=== PATIENT | female | born 1970 | race Caucasian/White ===

== ENCOUNTER → 2016-10-07 | Outpatient (CLI) | payer MEDICARE, OTHER ==
[2016-10-07 09:57] VITALS: BP 95/69; PULSE 95; RESP 20; TEMP 97.8; BMI 25.0
--- NOTE | 2016-10-09 18:00 | CONS ---
DATE OF CONSULTATION: 10/07/2016. CHIEF COMPLAINT: Panniculitis. HISTORY OF PRESENT ILLNESS: Shaye Alas is a 45-year-old female with a previous history of a sleeve gastrectomy performed in over 2, almost 3 years ago. For her height of 5 feet 9 inches, her ideal body weight is 168 pounds. Original weight was 313 pounds. Today she comes in weighing 169 pounds. She has lost 144 pounds. She has achieved 99% excess weight loss. Body mass index is reduced from 46.3 down to 25. Total BMI point reduction is 21.3. She reports chronic infections of the pannus. Over the past 6+ months she has been treated with nystatin powders. She has severe erythema and redness along the pannus, which is only minimally improved despite treatment. She reports chronic severe lower back pain from her pannus. Now she presents for further evaluation and management. PAST MEDICAL HISTORY: 1. History of bipolar disorder. 2. Depression. 3. Panniculitis. 4. History of bronchitis. 5. Chronic constipation. 6. Panic disorder. PAST SURGICAL HISTORY: 1. Sleeve gastrectomy. 2. Cholecystectomy. 3. Colonoscopy. MEDICATIONS: 1. Lamictal. 2. Seroquel. 3. Diclofenac. 4. Vitamin B12. 5. Vitamin D. 6. Nystatin powder. ALLERGIES: ASPIRIN. SOCIAL HISTORY: No recent active tobacco use. No illicit drug use. FAMILY HISTORY: She is adopted. REVIEW OF SYSTEMS: CONSTITUTIONAL: [place] body weight of 168 pounds. Highest weight of 313 pounds. Present weight of 169 pounds. Total weight loss of 144 pounds. Percent excess weight loss of 99%. Body mass index reduced from 46.3 down to 25. Total BMI point reduction of 21.3. HEENT: No reports of problems with vision, hearing. No reports of dysphagia. ENDOCRINE: No reports of diabetes or thyroid disorder. RESPIRATORY: No reports of obstructive sleep apnea recent pneumonia. GASTROINTESTINAL: No reports of nausea, vomiting, or gastrointestinal disease. MUSCULOSKELETAL: Has lower back pain. He has resolved osteoarthritis of the bilateral knees. NEURO: No reports of stroke or seizure disorder. PSYCH: History of depression including bipolar disorder. HEMATOLOGIC: No reports of easy bruising or bleeding. PHYSICAL EXAM: VITAL SIGNS: 97.8, 95, 20, 95/69; 5 feet 9 inches, 169 pounds. Body mass 25. GENERAL: Well-developed, pleasant female in no acute distress. HEENT: No scleral icterus. Extraocular movements grossly intact. Moist buccal mucosa. NECK: Supple without lymphadenopathy. CHEST: Nonlabored respirations equal bilateral excursions. CARDIOVASCULAR: Regular rate and rhythm. Palpable 2+ pulses. MUSCULOSKELETAL: No clubbing, cyanosis, or edema. NEURO: No focal or lateralizing signs. Cranial nerves II through XII grossly within normal limits. PSYCH: Appropriate affect. Alert and person, place, and time. SKIN: Erythema noticed along the pannus consistent with panniculitis. Pannus extends over pubis by over 8 cm. Weight of pannus between 8 to 10 pounds. Moderate skin elastosis of the bilateral thighs including upper arms. LABS: Previous hemoglobin was 13.1. ASSESSMENT: 1. Morbid obesity due to excess calories, now resolved. 2. Body mass index reduced from 46.3 down to 25. 3. Status post massive weight loss, 144 pounds. 4. Status post sleeve gastrectomy. 5. Recurrent severe panniculitis despite medical treatment. 6. Personal history of depression. 7. Osteoarthritis of the lower back. PLAN: 1. Recommend panniculectomy. Benefits and risks of excision of her skin was described. 2. Risk of flap failure, infection and recurrent including cosmetic deformity were described at length. 3. Inpatient hospitalization greater than 2 nights described. 4. Deep venous thrombosis prophylaxis. 5. Antibiotic prophylaxis. 6. Recommend goal protein intake of over 65 grams daily for optimal wound healing. 7. In the interim, nystatin powder to be continued. 8. Additional imaging pictures were obtained given her panniculitis. [facility]
== END | disposition home or self-care (01) ==
LOC: BARWHC3 09:08
PROVIDERS: ATTEND Surgery Plastic and Reconstructive Surgery
DX: Z48.815 Encounter for surgical aftercare following surgery on the digestive system (principal); Z98.84 Bariatric surgery status; M79.3 Panniculitis, unspecified; Z68.25 Body mass index [BMI] 25.0-25.9, adult; M47.896 Other spondylosis, lumbar region; Z88.8 Allergy status to other drugs, medicaments and biological substances; Z79.899 Other long term (current) drug therapy
CPT/HCPCS: 99211

== ENCOUNTER → 2016-11-02 | Outpatient (CLI) | payer MEDICARE, OTHER ==
[2016-11-02 10:32] LABS: Basophils % (A) 1 %; CH 27.8; CHCM 31.3; Eosinophils # (A) 0.1 k/uL (0-0.7); Eosinophils % (A) 1 %; HCT 39.2 % (34.0-46.0); HDW 2.85; HGB 12.3 gm/dL (11.4-16.0); Hypochromasia Slight; Luc # (Auto) 0.11; Luc % (Auto) 2; Lymphocytes # (A) 1.7 k/uL (1.0-4.8); Lymphocytes % (A) 34 %; MCHC 31.3 g/dL (31.0-37.0); MCV 89.2 fL (80.0-100.0); Mean Platelet Volume 8.8; Monocytes # (A) 0.3 k/uL (0-1.0); Monocytes % (A) 5 %; Neutrophils # (A) 2.9 k/uL (1.3-7.7); Neutrophils % (A) 57 %; RBC 4.39 m/uL (3.80-5.40); RDW 13.9 % (11.5-15.5); WBC (Perox) 5.36
[2016-11-02 10:54] LABS: ALT 20 U/L (9-52); AST 22 U/L (14-36); Alkaline Phosphatase 59 U/L (38-126); Anion Gap 11 mmol/L; Blood Urea Nitrogen 8 mg/dL (7-17); Calcium 9.4 mg/dL (8.4-10.2); Carbon Dioxide 26 mmol/L (22-30); Chloride 105 mmol/L (98-107); Glucose 87 mg/dL (74-99); Non-African American GFR(MDRD) >60 (>60 ml/min/1.73 sqM); Potassium 4.3 mmol/L (3.5-5.1); Sodium 142 mmol/L (137-145); Total Bilirubin 0.8 mg/dL (0.2-1.3); Total Protein 7.3 g/dL (6.3-8.2)
== END ==
LOC: LABPAT 09:39
PROVIDERS: ATTEND Surgery Plastic and Reconstructive Surgery
DX: Z01.812 Encounter for preprocedural laboratory examination (principal)
CPT/HCPCS: 80053; 85025

== ENCOUNTER 2016-11-08 10:16 | Day surgery (SDC) | payer MEDICARE, OTHER ==
[2016-11-03 15:13] VITALS: BMI 24.2
[~2016-11-08 10:16] MED LIST: DEXAMETHASONE SOD PHOSPHATE 10 MG/ML 1 ML VIAL IV ONE; HYDROmorphone 1 MG/ML 1 ML SYRINGE IVP PRN; MIDAZOLAM 2 MG/2 ML VIAL IV PRN; ONDANSETRON 4 MG/2 ML VIAL IVP ONE; Pre Op ABX Message 1 EACH MISC MISCELLANE ONE
[2016-11-08] MEDS ORDERED: BUPIVACAINE LIPOSOME/PF 1.3% 20 ML, BUPIVACAIN-EPI 0.5%-1:200,000 25 ML, SODIUM CHLORID... MISCELLANE ONE ×3 (10:21)
[2016-11-08] MEDS ORDERED: ceFAZolin 2 GM in SODIUM CHLORIDE 0.9% 100 ML IVPB ONE (10:21)
--- NOTE | 2016-11-08 10:21 | P.GSHP ---
History of Present Illness H&P Date: 11/08/16 CHIEF COMPLAINT: Panniculitis. HISTORY OF PRESENT ILLNESS: Shaye Alas is a 45-year-old female with a previous history of a sleeve gastrectomy performed in over 2, almost 3 years ago. For her height of 5 feet 9 inches, her ideal body weight is 168 pounds. Original weight was 313 pounds. Today she comes in weighing 164 pounds. She has lost 149 pounds. She has achieved 101% excess weight loss. Body mass index is reduced from 46.3 down to 24.2. Total BMI point reduction is 21.3. She reports chronic infections of the pannus. Over the past 6+ months she has been treated with nystatin powders. She has severe erythema and redness along the pannus, which is only minimally improved despite treatment. She reports chronic severe lower back pain from her pannus. Now she presents for further evaluation and management. PAST MEDICAL HISTORY: 1. History of bipolar disorder. 2. Depression. 3. Panniculitis. 4. History of bronchitis. 5. Chronic constipation. 6. Panic disorder. PAST SURGICAL HISTORY: 1. Sleeve gastrectomy. 2. Cholecystectomy. 3. Colonoscopy. MEDICATIONS: 1. Lamictal. 2. Seroquel. 3. Diclofenac. 4. Vitamin B12. 5. Vitamin D. 6. Nystatin powder. ALLERGIES: ASPIRIN. SOCIAL HISTORY: No recent active tobacco use. No illicit drug use. FAMILY HISTORY: She is adopted. REVIEW OF SYSTEMS: CONSTITUTIONAL: [place] body weight of 168 pounds. Highest weight of 313 pounds. Present weight of 164 pounds. Total weight loss of 144 pounds. Percent excess weight loss of 101%. Body mass index reduced from 46.3 down to 24.2. Total BMI point reduction of 21.3. HEENT: No reports of problems with vision, hearing. No reports of dysphagia. ENDOCRINE: No reports of diabetes or thyroid disorder. RESPIRATORY: No reports of obstructive sleep apnea recent pneumonia. GASTROINTESTINAL: No reports of nausea, vomiting, or gastrointestinal disease. MUSCULOSKELETAL: Has lower back pain. He has resolved osteoarthritis of the bilateral knees. NEURO: No reports of stroke or seizure disorder. PSYCH: History of depression including bipolar disorder. HEMATOLOGIC: No reports of easy bruising or bleeding. PHYSICAL EXAM: VITAL SIGNS: 97.8, 95, 20, 95/69; 5 feet 9 inches, 164 pounds. Body mass 24.2. GENERAL: Well-developed, pleasant female in no acute distress. HEENT: No scleral icterus. Extraocular movements grossly intact. Moist buccal mucosa. NECK: Supple without lymphadenopathy. CHEST: Nonlabored respirations equal bilateral excursions. CARDIOVASCULAR: Regular rate and rhythm. Palpable 2+ pulses. MUSCULOSKELETAL: No clubbing, cyanosis, or edema. NEURO: No focal or lateralizing signs. Cranial nerves II through XII grossly within normal limits. PSYCH: Appropriate affect. Alert and person, place, and time. SKIN: Erythema noticed along the pannus consistent with panniculitis. Pannus extends over pubis by over 8 cm. Weight of pannus between 8 to 10 pounds. Moderate skin elastosis of the bilateral thighs including upper arms. LABS: Previous hemoglobin was 13.1. ASSESSMENT: 1. Morbid obesity due to excess calories, now resolved. 2. Body mass index reduced from 46.3 down to 24.2. 3. Status post massive weight loss, 149 pounds. 4. Status post sleeve gastrectomy. 5. Recurrent severe panniculitis despite medical treatment. 6. Personal history of depression. 7. Osteoarthritis of the lower back. PLAN: 1. Recommend panniculectomy. Benefits and risks of excision of her skin was described. 2. Risk of flap failure, infection and recurrence including cosmetic deformity were described at length. 3. Inpatient hospitalization greater than 2 nights described. 4. Deep venous thrombosis prophylaxis. 5. Antibiotic prophylaxis. Past Medical History Past Medical History: Cancer, Osteoarthritis (OA), Pneumonia Additional Past Medical History / Comment(s): low blood pressure, bradycardia, bronchitis, childhood seizures none in last 20 yrs. 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 Smoking Status: Never smoker Past Alcohol Use History: None Reported Additional Past Alcohol Use History / Comment(s): She is a lifelong nonsmoker. She denies any medical marijuana, marijuana, street drug or alcohol use. She does not have a nebulizer or CPAP at home. Past Drug Use History: None Reported - Past Family History Father Additional Family Medical History / Comment(s): pt adopted but states her father is 65 years of age and she does not know any of his medical history. Mother Family Medical History: No Reported History Additional Family Medical History / Comment(s): pt adoptedher mother is 65 years of age. She does not know any medical history. Sister(s) Additional Family Medical History / Comment(s): She has 3 sisters that she has never met. Son(s) Additional Family Medical History / Comment(s): Patient is a total of 7 children , 4 boys and 3 girls with no major medical problems. Medications and Allergies Home Medications Medication Instructions Recorded Confirmed Type lamoTRIgine [LaMICtal] 150 mg PO HS 03/09/16 11/03/16 History Cholecalciferol [Vitamin D3] 1,000 unit PO DAILY 11/03/16 11/03/16 History Ferrous Sulfate [Feosol] 325 mg PO DAILY 11/03/16 11/03/16 History Lurasidone HCl [Latuda] 20 mg PO HS 11/03/16 11/03/16 History QUEtiapine [SEROquel] 200 mg PO HS 11/03/16 11/03/16 History Allergies Allergy/AdvReac Type Severity Reaction Status Date / Time sodium Allergy Anaphylaxis Verified 11/03/16 14:15 aspirin AdvReac pt states Verified 11/03/16 14:15 she after taking
[2016-11-08] MEDS: LACTATED RINGERS 1,000 ML IV SCH ×2 (11:44→17:18)
[2016-11-08] MEDS ORDERED: LIDOCAINE 1% 20 ML VIAL (10MG/ML) FOR IV START INTRADERMA ONE (11:45)
[2016-11-08] MEDS: ACETAMINOPHEN IV (For NPO) 1,000 MG in EMPTY BAG 1 BAG IVPB ONE ×2 (12:13→17:18)
[2016-11-08] MEDS ORDERED: HEPARIN SODIUM,PORCINE 5,000 UNIT/ML 1 ML VIAL SQ STA (15:06)
[2016-11-08] MEDS ORDERED: MIDAZOLAM 2 MG/2 ML VIAL ONE (17:20)
[2016-11-08] MEDS ORDERED: PHENYLEPHRINE-0.9% NACL SYG 1 MG/10 ML SYRINGE ONE (17:20)
[2016-11-08] MEDS ORDERED: PROPOFOL 10 MG/ML 20 ML VIAL IV ONE (17:20)
[2016-11-08] MEDS ORDERED: NEOSTIGMINE 1 MG/ML 10 ML VIAL ONE (17:20)
[2016-11-08] MEDS ORDERED: SUCCINYLCHOLINE CHLORIDE 100 MG/5 ML SYR IV ONE (17:20)
[2016-11-08] MEDS ORDERED: LIDOCAINE 1% INJ 10MG/ML (20 ML MDV) ONE (17:20)
[2016-11-08] MEDS ORDERED: HYDROmorphone (PF) 1 MG/ML ONE (17:20)
[2016-11-08] MEDS ORDERED: fentaNYL (PF) 50 MCG/ML 2 ML AMP ONE (17:20)
[2016-11-08] MEDS ORDERED: ROCURONIUM BROMIDE 10 MG/ML 10 ML VIAL IV ONE (17:20)
[2016-11-08] MEDS ORDERED: GLYCOPYRROLATE 0.2 MG/ML 2 ML VIAL ONE (17:20)
[2016-11-08] MEDS ORDERED: LACTATED RINGERS 1,000 ML IV ONE ×2 (17:57→19:41)
[2016-11-08] MEDS ORDERED: ONDANSETRON 4 MG/2 ML VIAL IVP PRN (20:01)
[2016-11-08] MEDS ORDERED: HYDROmorphone 1 MG/ML 1 ML SYRINGE IVP PRN (20:01)
[2016-11-08] MEDS ORDERED: NALOXONE 0.4 MG/ML 1 ML VIAL IV PRN (20:01)
[2016-11-08] MEDS ORDERED: lamoTRIgine 100 MG TAB PO SCH (21:00)
[2016-11-08] MEDS ORDERED: LURASIDONE 40 MG TAB PO SCH (21:00)
[2016-11-08 21:05] VITALS: RESP 19
[2016-11-08] MEDS: D5-0.45% NACL WITH KCL 20MEQ/L 1,000 ML IV SCH (22:02)
[2016-11-08] MEDS ORDERED: ACETAMINOPHEN IV (For NPO) 1,000 MG in EMPTY BAG 1 BAG IVPB ONE (23:00)
[2016-11-08] MEDS: ceFAZolin 2 GM in SODIUM CHLORIDE 0.9% 100 ML IVPB SCH (23:59)
[2016-11-09 02:07] VITALS: PULSE 77
[2016-11-09] MEDS: D5-0.45% NACL WITH KCL 20MEQ/L 1,000 ML IV SCH ×2 (04:59→15:05)
[2016-11-09] MEDS: LACTATED RINGERS 1,000 ML IV SCH (05:48)
[2016-11-09 07:39] LABS: Basophils % (A) 0 %; CH 27.8; CHCM 31.7; Eosinophils % (A) 1 %; HCT 29.2 % (34.0-46.0); HDW 2.87; Hypochromasia Slight; Luc # (Auto) 0.14; Luc % (Auto) 2; Lymphocytes % (A) 24 %; MCH 28.4 pg (25.0-35.0); MCHC 32.3 g/dL (31.0-37.0); Monocytes # (A) 0.5 k/uL (0-1.0); Monocytes % (A) 7 %; Neutrophils # (A) 5.4 k/uL (1.3-7.7); Neutrophils % (A) 67 %; RBC 3.32 m/uL (3.80-5.40); RDW 13.9 % (11.5-15.5); WBC (Perox) 8.27
[2016-11-09 08:01] LABS: HGB 9.4 gm/dL (11.4-16.0)
[2016-11-09] MEDS ORDERED: ENOXAPARIN 40 MG/0.4 ML SYRINGE SQ SCH (09:00)
--- NOTE | 2016-11-09 09:56 | P.PN ---
Subjective 46-year-old female being seen this morning on rounds is currently resting in bed. Patient states pain has been tolerable has not taken any analgesics for pain control. Patient is postop day 1 panniculectomy with 3.5 pounds removed and a ventral hernia repair patient does have a previous history of a sleeve gastrectomy performed over to almost 3 years ago. Over the past 6 months patient has been treated for chronic infections involving pannus. Patient's been treated in the past 6 months with nystatin powder has a severe ischemia and redness along pannus. Additionally patient is reportedly at been experiencing chronic severe lower back pain from her pannus. Patient elected to proceed with the surgical approach. Objective - Vital Signs Vital signs: Vital Signs Temp 97.6 F 11/09/16 02:06 Pulse 77 11/09/16 02:06 Resp 19 11/09/16 02:06 BP 91/53 11/09/16 02:06 Pulse Ox 98 11/09/16 02:06 Intake & Output 11/08/16 11/09/16 11/09/16 18:59 06:59 18:59 Intake Total 2200 1950.0 Output Total 1000 300 400 Balance 1200 1650.0 -400 Weight 75.296 kg Intake: IV 2200 400 Intake, IV Titration 1100.0 Amount D5-0.45% NaCl with KCl 1000.0 20Meq/l 1,000 ml @ 125 mls/hr IV .Q8H ENEDINA Rx#: [id number] ceFAZolin 2 gm In Sodium 100 Chloride 0.9% 100 ml @ 100 mls/hr IVPB Q8H ENEDINA Rx#:[id number] Oral 450 Output: Drainage 100 Right Abdomen 40 Right Lower Abdomen 60 Urine 400 200 400 Uretheral ([place]) 400 Estimated Blood Loss 600 Other: Voiding Method Indwelling Catheter - Exam Physical exam 46-year-old female sitting up in bed and appears in no acute distress pleasant cooperative oriented 3 Lungs essentially clear adequate air movement Heart S1-S2 audible and regular Abdomen abdominal binder in place. Patient states no stool Maurilio-Valenzuela drain right lower quadrant currently scant amount of serous drainage and the bottom No nausea tolerating clear liquid not distended surgical tenderness bowel tones present Extremities Venodyne's on to the bilateral lower extremities - Labs CBC & Chem 7: 11/09/16 06:51 Labs: Abnormal Lab Results - Last 24 Hours (Table) 11/09/16 Range/Units 06:51 RBC 3.32 L (3.80-5.40) m/uL Hgb 9.4 L D (11.4-16.0) gm/dL Hct 29.2 L (34.0-46.0) % Assessment and Plan Plan: Impression Morbid obesity BMI reduced from 46-24 Morbid obesity due to excessive calories now resolved History of a gastric sleeve 2-3 years prior Depressive disorder nonspecified Osteoarthritis of the lower back Status post gastric sleeve massive weight loss of 149 pounds Recurrent severe panniculitis despite medical treatment Status post panniculectomy 3.5 pounds removed and this ventral hernia repair done on November 08 Plan Continue postop surgical care pain Pain control DVT and GI prophylaxis Increase activity to the level of tolerance Further recommendations pending Resume home meds as appropriate The above dictated assessment and findings were discussed with dr Lamar. Impression and the plan of care have been dictated as directed. Enedelia Lambert nurse practitioner acting as a scribe for Brianda
[2016-11-09] MEDS: ceFAZolin 2 GM in SODIUM CHLORIDE 0.9% 100 ML IVPB SCH (10:11)
[2016-11-09 11:10] LABS: Magnesium 1.8 mg/dL (1.6-2.3)
[2016-11-09 11:21] LABS: % Iron Saturation 36.7 % (20-50)
[2016-11-09] MEDS ORDERED: HYDROcodone/APAP 5-325MG 1 EACH TAB PO PRN ×2 (11:25→12:49)
[2016-11-09 12:36] VITALS: BP 90/50; TEMP 97.2
--- NOTE | 2016-11-09 14:32 | P.PN ---
Progress Note - Text Patient is doing very well. May follow up in the bariatric center in 48 hrs.
--- NOTE | 2016-11-09 14:32 | P.DS ---
Providers Date of admission: 11/08/16 Expected date of discharge: 11/09/16 Attending physician: Amanda Lamar Primary care physician: John Garcia - Discharge Diagnosis(es) (1) Panniculitis Status: Chronic (2) Panniculus adiposus Status: Chronic (3) History of bariatric surgery Status: Chronic (4) Iron deficiency anemia Status: Chronic (5) Depression Status: Chronic (6) S/P panniculectomy Status: Acute (7) Ventral hernia Status: Acute Hospital Course: HISTORY OF PRESENT ILLNESS: Shaye Alas is a 45-year-old female with a previous history of a sleeve gastrectomy performed in over 2, almost 3 years ago. For her height of 5 feet 9 inches, her ideal body weight is 168 pounds. Original weight was 313 pounds. Today she comes in weighing 164 pounds. She has lost 149 pounds. She has achieved 101% excess weight loss. Body mass index is reduced from 46.3 down to 24.2. Total BMI point reduction is 21.3. She reports chronic infections of the pannus. Over the past 6+ months she has been treated with nystatin powders. She has severe erythema and redness along the pannus, which is only minimally improved despite treatment. She reports chronic severe lower back pain from her pannus. Now she presents for further evaluation and management. Postoperatively, she had excellent pain control. LAILA teaching was reviewed. She is advised to continue with a high protein diet to facilitate recovery. Discharge instructions were verbalized. She will follow-up in the bariatric center in 48-72 hours. Pertinent Studies: None. Procedures: 1. Panniculectomy, 3.5 pounds 2. Ventral hernia repair, initial, primary, 8 x 24 cm Patient Condition at Discharge: Stable Plan - Discharge Summary New Discharge Prescriptions: Hydrocodone/Acetaminophen [[place] 5-325] 1 - 2 each PO Q6HR PRN #60 tab PRN Reason: Pain Discharge Medication List lamoTRIgine [LaMICtal] 150 mg PO HS 03/09/16 [History] Cyanocobalamin [Vitamin B-12] 500 mcg PO DAILY #30 tablet 03/10/16 [Rx] Diclofenac Sodium Gel [Voltaren Gel] 2 gm TOPICAL QID #1 tube 03/10/16 [Rx] Cholecalciferol [Vitamin D3] 1,000 unit PO DAILY 11/03/16 [History] Ferrous Sulfate [Feosol] 325 mg PO DAILY 11/03/16 [History] Lurasidone HCl [Latuda] 20 mg PO HS 11/03/16 [History] QUEtiapine [SEROquel] 200 mg PO HS 11/03/16 [History] Hydrocodone/Acetaminophen [[place] 5-325] 1 - 2 each PO Q6HR PRN #60 tab 11/09/16 [Rx] Follow up Appointment(s)/Referral(s): Amanda Lamar MD [STAFF PHYSICIAN] - 11/11/16 12:00 pm (Bariatric Center) [facility], [NON-STAFF] - 1 Week Patient Instructions/Handouts: Maurilio-Valenzuela Drain Care (DC), Belt Lipectomy ( DC), Abdominal Binder (DC) Activity/Diet/Wound Care/Special Instructions: No lifting over 4 pounds in 4 weeks. LAILA drain management. Do not remove abdominal binder Discharge Disposition: HOME SELF-CARE
--- NOTE | 2016-11-09 14:37 | P.PCN ---
Date of Procedure: 11/08/16 Preoperative Diagnosis: Panniculitis. Postoperative Diagnosis: Panniculitis, ventral hernia Procedure(s) Performed: Panniculectomy, 3.5 pounds; Ventral hernia repair 8 x 24 cm Anesthesia: GETA, local Surgeon: Amanda Lamar Estimated Blood Loss (ml): 600 Pathology: other (pannus 3.5 lbs) Condition: stable Disposition: floor
--- NOTE | 2016-11-22 13:43 | P.OP ---
Date of Procedure: 11/08/16 Description of Procedure: SURGEON: PAT CHRISTIANSEN MD JEWELRY MAKING INSTRUCTOR: NATALYA LESLIE PREOPERATIVE DIAGNOSES: 1. Morbid obesity due to excess calories, now resolved. 2. Body mass index reduced from 46.3 down to 24.2. 3. Status post massive weight loss, 149 pounds. 4. Status post sleeve gastrectomy. 5. Recurrent severe panniculitis despite medical treatment. 6. Personal history of depression. 7. Osteoarthritis of the lower back. 8. Iron deficiency anemia. POSTOPERATIVE DIAGNOSES: 1. Morbid obesity due to excess calories, now resolved. 2. Body mass index reduced from 46.3 down to 24.2. 3. Status post massive weight loss, 149 pounds. 4. Status post sleeve gastrectomy. 5. Recurrent severe panniculitis despite medical treatment. 6. Personal history of depression. 7. Osteoarthritis of the lower back. 8. Iron deficiency anemia. 9. Ventral hernia, 8 x 24 cm, initial and reducible. OPERATION: 1. Panniculectomy, 3.5 pounds. 2. Primary repair of ventral hernia 17 x 28 cm without mesh. 3. Open reduction and repair of 3 cm incarcerated umbilical hernia. ANESTHESIA: General with 85 mL of Exparel with sensorcaine and normal saline mixture. ESTIMATED BLOOD LOSS: 600 mL SPECIMENS REMOVED: Pannus 3.5 pounds. COMPLICATIONS: None. CONDITION: Stable. DRAINS: Two #19 Kvng drains below abdominal flap extending through the pubis. OPERATIVE FINDINGS: 1. Pannus weighing 3.5 pounds, excised. 2. Abdominal ventral hernia of 8 x 24 cm along the midline repaired primarily using fascial imbrication. INDICATIONS: Shaye Alas is a 45-year-old female with a previous history of a sleeve gastrectomy performed in over 2, almost 3 years ago. For her height of 5 feet 9 inches, her ideal body weight is 168 pounds. Original weight was 313 pounds. Today she comes in weighing 164 pounds. She has lost 149 pounds. She has achieved 101% excess weight loss. Body mass index is reduced from 46.3 down to 24.2. Total BMI point reduction is 21.3. She reports chronic infections of the pannus. Over the past 6+ months she has been treated with nystatin powders. She has severe erythema and redness along the pannus, which is only minimally improved despite treatment. She reports chronic severe lower back pain from her pannus. Now she presents for further evaluation and management. She reports medically refractory panniculitis. Given her clinical symptoms, including massive weight loss, she elected for surgical intervention with a panniculectomy. Benefits and risks of the procedure including bleeding, infection, risk of flap failure were described at length. Informed consent was obtained. DESCRIPTION: In the preanesthesia care unit the patient was marked with an indelible marker. She had also been given heparin subcutaneously. The patient was brought into the operating room and laid in supine position. After general induction, a [place] catheter was placed. The abdomen was then prepped and draped in standard sterile fashion using ChloraPrep. The skin was prepped as far laterally to the back, inferiorly to the upper thighs and superiorly to above the bilateral breasts. A timeout protocol was confirmed with the surgical team regarding patient's name , procedure to be performed, including preoperative medications. She had received Ancef 2 grams IV antibiotics. Once the time-out protocol was confirmed with the surgical team, the patient was re-marked with indelible marker whereby the midline of the xiphoid to the mons pubis was marked. The anterior/superior iliac spine along the bilateral hips was also marked. Approximately 8 cm above the pubis commissure a transverse incision was made for the inferior portion of the flap. Using a #10 blade, the incision was taken from the midline laterally to above the anterior/ superior iliac spine, initially on the left side of the patient and then on the right side of the patient. Electro-Bovie cautery was used to control for hemostasis. The dissection was taken down to the level of the fascia. Landmarks used were the xiphoid process as well as the bilateral costal margins for the superior margin. Care was taken to avoid any creation of dog ears during the dissection. Once hemostasis was checked, a large ventral hernia fascial defect of 8 x 24 cm was identified unrelated to her bariatric procedure. During this dissection, the umbilicus was truncated at its fascial insertion. Starting from the xiphoid process, fascial imbrication was performed using #2 Ethibond. Multiple facial imbrications at least 4 layers were performed. The ventral hernia defect was completely repaired and closed. For postop analgesia , 85 mL of Exparel with sensorcaine and normal saline mixture was infiltrated along the midline and fascia. Hemostasis was once again checked with electro-Bovie cautery and all defects were addressed. Attention was now brought to closure of the flap. Using stainless steel skin lenore, the midline was once again marked of the upper flap as well as the pubic commissure. The patient was placed in a flexed position of approximately 30 degrees at the hips. The pannus was extended inferiorly to the feet. The upper flap was created once the excess skin was excised. Again care was taken to avoid any dog ears along the lateral aspect of the incisions. Once excised, the pannus was weighed at 3.5 pounds. The upper and lower flaps were reapproximated at the midline and then laterally to the skin with skin lenore. Once reapproximated, the skin was closed in layers using 0 Vicryl for the superficial fascial system followed by running 3- 0 Monocryl for the deep dermis in a running subcuticular fashion. Prior to skin closure, two round #19 Kvng drains were placed underneath the flap and brought out just inferior to the incision along the pubis. Drain stitch using 2-0 nylon was placed. Once the incision was closed, bulb suction was attached. Hemostasis was checked. At the end of the procedure, the needle, sponge and instrument count was verified correct. Dermabond tape was placed along the length of the incision. Aquacell Ag Silver anabiotic dressing was placed along the incision. CHG Tegaderm was placed over the drain insetion sites. The patient was then transferred to a hospital bed in a beach chair position. An abdominal binder was placed and marked. The patient was taken to the postanesthesia care unit in stable condition, awake and extubated. Total time for procedure from skin to skin was 120 minutes. Patient was deemed an ASA2. The intraoperative findings were discussed with her family.
== END 2016-11-09 15:40 | disposition home or self-care (01) ==
LOC: OR 10:16 → 3SUR 19:53 → OR 11-09 15:40
PROVIDERS: ATTEND Surgery Plastic and Reconstructive Surgery
DX: M79.3 Panniculitis, unspecified (principal); E65 Localized adiposity; K43.9 Ventral hernia without obstruction or gangrene; Z98.84 Bariatric surgery status; D50.9 Iron deficiency anemia, unspecified; F31.9 Bipolar disorder, unspecified; Z87.898 Personal history of other specified conditions; Z68.24 Body mass index [BMI] 24.0-24.9, adult; M19.90 Unspecified osteoarthritis, unspecified site; F41.0 Panic disorder [episodic paroxysmal anxiety]; F41.9 Anxiety disorder, unspecified; F20.9 Schizophrenia, unspecified; Z79.899 Other long term (current) drug therapy; Z88.8 Allergy status to other drugs, medicaments and biological substances; Z91.048 Other nonmedicinal substance allergy status
CPT/HCPCS: 81025; 83540; 83550; 83735; 85025; 15830; 49560; J2250; J1644; J1100; J2710; J0690 ×2; J2405; J2001; J1650; J3010; J1170; J0131; J2370; J0330; C9290; J2704

== ENCOUNTER → 2016-11-11 | Outpatient (CLI) | payer MEDICARE, OTHER ==
[2016-11-11 12:45] VITALS: BP 103/63; PULSE 78; RESP 14; TEMP 97.4; BMI 25.1
--- NOTE | 2016-12-16 06:24 | P.PN ---
Progress Note - Text DATE OF SERVICE: 11/11/2016 CHIEF COMPLAINT: History of panniculectomy. HISTORY OF PRESENT ILLNESS: Shaye Alas is a 46-year-old female who is status post panniculectomy. At a height of 5 feet 9 inches, her ideal body weight is 168 pounds. Her highest weight is 313 pounds. She comes in weighing 170 pounds. She has lost 143 pounds. Percent excess weight loss is 99%. Body mass index is reduced from 46.3 down to 25.1. Total BMI point reduction 21.1. She is only 2 pounds overweight. No reports of increased abdominal pain. PHYSICAL EXAM: VITAL SIGNS: 97.4, 78, 14, 103/63; 5 feet 9 inches, 170 pounds. Body mass 25.1. ABDOMEN: Dressing is clean, dry and intact. No cellulitis identified. No signs of infection. LAILA serosanguineous. Dressings were discontinued. GENERAL: Well-developed, pleasant female in no acute distress. HEENT: No scleral icterus. Extraocular movements grossly intact. Moist buccal mucosa. NECK: Supple without lymphadenopathy. CHEST: Nonlabored respirations equal bilateral excursions. CARDIOVASCULAR: Regular rate and rhythm. Palpable 2+ pulses. MUSCULOSKELETAL: No clubbing, cyanosis, or edema. NEURO: No focal or lateralizing signs. Cranial nerves II through XII grossly within normal limits. PSYCH: Appropriate affect. Alert and person, place, and time. ASSESSMENT: 1. Morbid obesity due to excess calories, now resolved. 2. Body mass index reduced from 46.3 down to 25.1. 3. Status post massive weight loss of 143 pounds. 4. Status post panniculectomy for panniculitis. 5. Dietary surveillance and counseling. PLAN: 1. I have discontinued her external dressings. 2. Her drain will be continued with follow up in 1 week. 3. I have asked her to wear abdominal binder at all times to minimize any increased risk of seroma.
== END | disposition home or self-care (01) ==
LOC: BARWHC3 11:09
PROVIDERS: ATTEND Surgery Plastic and Reconstructive Surgery
DX: K43.0 Incisional hernia with obstruction, without gangrene (principal)
CPT/HCPCS: 99212

== ENCOUNTER → 2016-11-18 | Outpatient (CLI) | payer MEDICARE, OTHER ==
[2016-11-18 12:35] VITALS: BP 111/61; PULSE 78; RESP 14; TEMP 98.8; BMI 24.0
--- NOTE | 2016-12-12 10:05 | PN ---
DATE OF SERVICE: 11/18/2016. CHIEF COMPLAINT: Panniculectomy. HISTORY OF PRESENT ILLNESS: Shaye Alas is a 46-year-old female who is status post panniculectomy 11/08/2016. She reports her pain is controlled. Otherwise she has been wearing abdominal binder at all times. At her height of 5 feet 9 inches, her ideal body weight is 168 pounds. Highest weight is 313 pounds. Today she comes in weighing 162 pounds. She has lost 151 pounds. Percent excess weight loss is 104%. Body mass index reduced at 46.3 down to 24. Total BMI point reduction is 22.3. PHYSICAL EXAM: VITAL SIGNS: 98.8, 78, 14, 111/61, 5 foot 9, 162 pounds. Body mass index of 24. ABDOMEN: Abdominal binder was taken down with drains removed, serosanguineous. Flaps were intact and viable. GENERAL: Well-developed, pleasant female in no acute distress. HEENT: No scleral icterus. Extraocular movements grossly intact. Moist buccal mucosa. NECK: Supple without lymphadenopathy. CHEST: Nonlabored respirations equal bilateral excursions. CARDIOVASCULAR: Regular rate and rhythm. Palpable 2+ pulses. MUSCULOSKELETAL: No clubbing, cyanosis, or edema. NEURO: No focal or lateralizing signs. Cranial nerves II through XII grossly within normal limits. PSYCH: Appropriate affect. Alert and person, place, and time. ASSESSMENT: 1. Morbid obesity due to excess calories, now resolved. 2. Body mass index reduced from 46.3 down to 24. 3. History of panniculitis, now resolved. 4. Status post panniculectomy. PLAN: 1. She will wear abdominal binder at all times except for showering to minimize her risk for seromas. 2. I recommend follow up in one week. [facility]
== END | disposition home or self-care (01) ==
LOC: BARWHC3 10:18
PROVIDERS: ATTEND Surgery Plastic and Reconstructive Surgery
DX: Z48.815 Encounter for surgical aftercare following surgery on the digestive system (principal); Z68.24 Body mass index [BMI] 24.0-24.9, adult
CPT/HCPCS: 99212

== ENCOUNTER → 2016-12-08 | Outpatient (CLI) | payer MEDICARE, OTHER ==
[2016-12-08 13:12] VITALS: BP 114/64; PULSE 81; RESP 16; TEMP 98.1; BMI 23.9
--- NOTE | 2017-01-03 18:08 | P.PN ---
Progress Note - Text DATE OF SERVICE: 12/08/2016 CHIEF COMPLAINT: Follow-up panniculectomy. HISTORY OF PRESENT ILLNESS: Shaye Alas is a 46-year-old female status post panniculectomy on 11/08/2016. She is now one month out. She has been doing extremely well post panniculectomy. She has already lost at least 10 pounds. At her height of 5 feet 9 inches, her ideal body weight is 168 pounds. Her initial weight prior to her sleeve was 313 pounds. Today she comes in weighing 162 pounds. She has lost 151 pounds lifetime. Percent excess weight loss is 104%. Body mass index is reduced from 46.3 down to 23.9. Total BMI point reduction is 22.4. PHYSICAL EXAM: VITAL SIGNS: 98.1, 81, 16, 114/64, 5 foot 9 inches, 162 pounds. Body mass index 23.9. ABDOMEN: Soft, nontender, nondistended. Very minimal fluid collection. Abdomen is nontender without signs of infection. GENERAL: Well-developed, pleasant female in no acute distress. HEENT: No scleral icterus. Extraocular movements grossly intact. Moist buccal mucosa. NECK: Supple without lymphadenopathy. CHEST: Nonlabored respirations equal bilateral excursions. CARDIOVASCULAR: Regular rate and rhythm. Palpable 2+ pulses. MUSCULOSKELETAL: No clubbing, cyanosis, or edema. NEURO: No focal or lateralizing signs. Cranial nerves II through XII grossly within normal limits. PSYCH: Appropriate affect. Alert and person, place, and time. ASSESSMENT: 1. Status post panniculectomy for panniculitis. 2. Status post massive weight loss 151 pounds. 3. Status post sleeve gastrectomy. 4. Constipation. PLAN: 1. She reports constipation and may take Miralax laxative if needed. 2. She is already four weeks out; however, she should continue wearing her abdominal binder at all times. 3. Recommend follow-up in one month or sooner.
== END | disposition home or self-care (01) ==
LOC: BARWHC3 11:56
PROVIDERS: ATTEND Surgery Plastic and Reconstructive Surgery
DX: Z48.815 Encounter for surgical aftercare following surgery on the digestive system (principal); Z98.84 Bariatric surgery status; K59.00 Constipation, unspecified; Z68.23 Body mass index [BMI] 23.0-23.9, adult
CPT/HCPCS: 99211

== ENCOUNTER → 2016-12-29 | Outpatient (CLI) | payer MEDICARE, OTHER ==
[2016-12-29 13:16] VITALS: BP 104/68; PULSE 89; RESP 16; TEMP 98.7; BMI 24.0
--- NOTE | 2016-12-29 13:39 | P.PN ---
Progress Note - Text has severe constipation... miralax...and lactulose.. long poop no fluid belly binder...as needed.... dulcolax and lactulose daily....
--- NOTE | 2017-02-20 10:24 | PN ---
DATE OF SERVICE: 12/29/2016. CHIEF COMPLAINT: Follow-up panniculectomy. HISTORY OF PRESENT ILLNESS: Shaye Alas is a 46-year-old female status post panniculectomy almost 2 months ago on 11/08/2016. She comes in fairly happy with her cosmetic result. She does report severe constipation. She has been wearing her abdominal binder. At a height of 5 foot 9 and her ideal body weight is 168 pounds. Her initial weight was 313 pounds. Today she comes in weighing 163 pounds. She has maintained a 150 weight loss. Body mass index is reduced from 46.3 down to 24. Total BMI point reduction is 22.2. She has achieved 104% excess weight loss. PHYSICAL EXAM: VITAL SIGNS: 98.7, 89, 16, 104/68; 5 foot 9, 163 pounds. ABDOMEN: No palpable fluid seroma. Soft, nontender, nondistended. No cosmetic deformity, along the flank. GENERAL: Well-developed, pleasant female in no acute distress. HEENT: No scleral icterus. Extraocular movements grossly intact. Moist buccal mucosa. NECK: Supple without lymphadenopathy. CHEST: Nonlabored respirations equal bilateral excursions. CARDIOVASCULAR: Regular rate and rhythm. Palpable 2+ pulses. MUSCULOSKELETAL: No clubbing, cyanosis, or edema. NEURO: No focal or lateralizing signs. Cranial nerves II through XII grossly within normal limits. PSYCH: Appropriate affect. Alert and person, place, and time. ASSESSMENT: 1. Morbid obesity due to excess calories, now resolved. 2. Body mass index reduced from 46.3 down to 24. 3. History of panniculitis, now resolved. 4. History of constipation. 5. Personal history of status post sleeve gastrectomy. PLAN: 1. For constipation recommend MiraLax or lactulose. 2. Recommend using Dulcolax also as needed. 3. She is recovered well from her panniculectomy without any postoperative sequelae. 4. Recommend follow-up minimum on a yearly basis as she has history of sleeve gastrectomy. 5. She has done extremely well maintaining at least 150 pounds weight loss. [facility]
== END | disposition home or self-care (01) ==
LOC: BARWHC3 12:36
PROVIDERS: ATTEND Surgery Plastic and Reconstructive Surgery
DX: K59.00 Constipation, unspecified (principal)
CPT/HCPCS: 99211

== ENCOUNTER → 2019-10-29 | Outpatient (CLI) | payer MEDICARE, OTHER ==
--- NOTE | 2019-10-30 07:50 | XR ---
EXAMINATION TYPE: XR cervical spine comp DATE OF EXAM: 10/29/2019 COMPARISON: NONE HISTORY: Pain TECHNIQUE: 4 views are submitted. FINDINGS: The odontoid is intact. There are no compression deformities. The prevertebral soft tissue structur es are within normal limits. There is mild degenerative disc disease C5-C6. IMPRESSION: 1. Mild degenerative disc disease C5-C6. Consider MRI follow-up..
--- NOTE | 2019-10-30 08:06 | XR ---
EXAM TYPE: LUMBAR SPINE X RAY SERIES COMPARISON: NONE HISTORY: Pain TECHNIQUE: 3 views are submitted. FINDINGS: Alignment is anatomic. The pedicles are intact. The transverse processes are intact. There is no s pondylolisthesis. There is hypertrophic changes and degenerative disc disease at all levels most mar ked at levels L3-L5. Multilevel facet arthropathy noted. IMPRESSION: 1. Multilevel mild to moderate degenerative disc disease. Consider MRI follow-up..
--- NOTE | 2019-10-30 08:08 | XR ---
EXAMINATION TYPE: XR thoracic spine complete DATE OF EXAM: 10/29/2019 COMPARISON: NONE HISTORY: Pain TECHNIQUE: 3 views submitted FINDINGS: Alignment is anatomic. There is no compression deformities. There is multilevel hypertrophic and deg enerative disc disease. Postsurgical changes in the abdomen incidentally noted. Curvature the spine m ay be positional. IMPRESSION: 1. Multilevel hypertrophic and degenerative disc disease most pronounced in the mid and lower thoraci c spine.
== END | disposition home or self-care (01) ==
LOC: RADXRMAIN 16:31
PROVIDERS: ATTEND Nurse Practitioner
DX: M50.322 Other cervical disc degeneration at C5-C6 level (principal); M51.36 Other intervertebral disc degeneration, lumbar region; M51.34 Other intervertebral disc degeneration, thoracic region
CPT/HCPCS: 72050; 72072; 72100

== ENCOUNTER 2020-07-14 15:31 | Emergency (ER) | payer MEDICARE, OTHER ==
[2020-07-14 15:55] VITALS: BP 134/69; PULSE 77; RESP 18; TEMP 98.3
--- NOTE | 2020-07-14 16:15 | XR ---
EXAMINATION TYPE: XR ankle complete LT DATE OF EXAM: 07/14/2020 COMPARISON: NONE HISTORY: Pain TECHNIQUE: 3 views of the left ankle are submitted for evaluation. FINDINGS: There is no evidence for fracture or dislocation. Ankle mortise is intact. Soft tissues are within normal limits. IMPRESSION: 1. No evidence for acute fracture.
--- NOTE | 2020-07-14 17:12 | ED ---
General Adult HPI - General Chief complaint: Extremity Problem,Nontraumatic Stated complaint: L Foot Pain Time Seen by Provider: 07/14/20 16:43 Source: patient, RN notes reviewed Mode of arrival: ambulatory Limitations: no limitations - History of Present Illness Initial comments: 49 old female presents to the emergency room for a chief complaint of left ankle pain. Patient reports that she has had a clicking sound in her ankles for 35 years. Patient reports that she was walking today around 2 hours ago when she felt a click in her ankle that caused pain in her ankle. Patient states it is somewhat painful to walk but it was able to walk to the hospital. Patient did not take anything for pain. Patient does not have any foot or knee pain. Ole pearce has no other complaints at this time including shortness of breath, chest pain, abdominal pain, nausea or vomiting, headache, or visual changes. - Related Data Home Medications Medication Instructions Recorded Confirmed Cholecalciferol [Vitamin D3 (25 1,000 unit PO DAILY 11/03/16 12/29/16 Mcg = 1000 Iu)] Ferrous Sulfate [Feosol] 325 mg PO DAILY 11/03/16 12/29/16 Lurasidone [Latuda] 20 mg PO HS 11/03/16 12/29/16 QUEtiapine [SEROquel] 200 mg PO HS 11/03/16 12/29/16 Previous Rx's Medication Instructions Recorded Cyanocobalamin [Vitamin B-12] 500 mcg PO DAILY #30 tablet 03/10/16 Diclofenac Sodium Gel [Voltaren 2 gm TOPICAL QID #1 tube 03/10/16 Gel] Lactulose [Cephulac] 30 gm PO BID #240 ml 12/08/16 Polyethylene Glycol 3350 [Miralax] 17 gm PO DAILY #527 gm 12/29/16 bisacodyL [Dulcolax] 10 mg PO DAILY #30 tablet. 12/29/16 Allergies Allergy/AdvReac Type Severity Reaction Status Date / Time sodium Allergy Anaphylaxis Verified 07/14/20 15:52 aspirin AdvReac pt states Verified 07/14/20 15:52 she after taking Review of Systems ROS Statement: Those systems with pertinent positive or pertinent negative responses have been documented in the HPI. ROS Other: All systems not noted in ROS Statement are negative. Past Medical History Past Medical History: Cancer, Osteoarthritis (OA), Pneumonia Additional Past Medical History / Comment(s): low blood pressure, bradycardia, bronchitis, childhood seizures none in last 20 yrs. 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 History of Any Multi-Drug Resistant Organisms: None Reported Past Surgical History: Bariatric Surgery, Cholecystectomy, Hernia Repair Additional Past Surgical History / Comment(s): gastric sleeve in 2014, panniculectomy Past Anesthesia/Blood Transfusion Reactions: No Reported Reaction Past Psychological History: Anxiety, Bipolar, Depression, Panic Disorder Smoking Status: Never smoker Past Alcohol Use History: None Reported Past Drug Use History: None Reported - Past Family History Father Additional Family Medical History / Comment(s): pt adopted but states her father is 65 years of age and she does not know any of his medical history. Mother Family Medical History: No Reported History Additional Family Medical History / Comment(s): pt adoptedher mother is 65 years of age. She does not know any medical history. Sister(s) Additional Family Medical History / Comment(s): She has 3 sisters that she has never met. Son(s) Additional Family Medical History / Comment(s): Patient is a total of 7 children, 4 boys and 3 girls with no major medical problems. General Exam Limitations: no limitations General appearance: alert, in no apparent distress Head exam: Present: atraumatic, normocephalic, normal inspection Eye exam: Present: normal appearance, PERRL, EOMI. Absent: scleral icterus, conjunctival injection, periorbital swelling ENT exam: Present: normal exam, mucous membranes moist Neck exam: Present: normal inspection. Absent: tenderness, meningismus, lymphadenopathy Respiratory exam: Present: normal lung sounds bilaterally. Absent: respiratory distress, wheezes, rales, rhonchi, stridor Cardiovascular Exam: Present: regular rate, normal rhythm, normal heart sounds. Absent: systolic murmur, diastolic murmur, rubs, gallop, clicks Extremities exam: Present: full ROM (Full range of motion of the left ankle.), tenderness (Tenderness noted to the lateral malleolus of the left ankle. No tenderness to the medial malleolus. No navicular or fifth metatarsal tenderness), normal capillary refill (cap refill is 2 seconds, DP pulse 2+ in the left lower extremity.), other (sensation intact LLE, no external signs of trauma). Absent: joint swelling (No edema noted of the left ankle.) Course Vital Signs 07/14/20 15:49 Temperature 98.3 F Pulse Rate 77 Respiratory 18 Rate Blood Pressure 134/69 O2 Sat by Pulse 98 Oximetry Procedures - Orthopedic Splinting/Casting Injury #1 Side: left Lower Extremity Injury Location: ankle Lower Extremity Immobilizer: AirCast Additional Comments: NV intact after splint applied Medical Decision Making - Medical Decision Making Vitals are stable. HPI and physical exam as documented. X-ray of the left ankle shows no evidence for acute fracture. Patient may have a sprain and was placed in an Aircast. Recommended she follow up with her doctor. She will return here for any worsening symptoms. She was also given referral to ortho pedics. Disposition Clinical Impression: Ankle pain, left Disposition: HOME SELF-CARE Condition: Good Instructions (If sedation given, give patient instructions): Moderate Sedation (ED) Additional Instructions: Please take Motrin and Tylenol for pain. Use brace as needed. Follow-up with your doctor or orthopedics in one to 2 days. Return to the emergency room if you have any worsening symptoms. Is patient prescribed a controlled substance at d/c from ED?: No Referrals: [facility] [Primary Care Provider] - 1-2 days Roberto Castillo DO [Doctor of Osteopathic Medicine] - 1-2 days Time of Disposition: 17:11
== END 2020-07-14 17:29 | disposition home or self-care (01) ==
LOC: EC 15:31
DX: M25.572 Pain in left ankle and joints of left foot (principal); F32.9 Major depressive disorder, single episode, unspecified; Z79.899 Other long term (current) drug therapy; Z91.09 Other allergy status, other than to drugs and biological substances; Z88.6 Allergy status to analgesic agent
CPT/HCPCS: 73610; 99283; 29515; L4350

== ENCOUNTER → 2021-10-20 | Outpatient (CLI) | payer OTHER ==
[2021-10-20 14:52] LABS: HCT 44.5 % (37.2-46.3); HGB 13.4 g/dL (12.0-15.0); MCH 29.2 pg (27.0-32.0); MCHC 30.1 g/dL (32.0-37.0); MCV 96.9 fL (80.0-97.0); Mean Platelet Volume 11.8 fL (9.5-12.2); NRBC Per 100 WBC 0 /100 WBCS (0.0-0.0); Platelet Count 169 X 10*3/uL (140-440); RBC 4.59 X 10*6/uL (4.10-5.20); RDW 14.2 % (11.5-14.5); WBC 5.31 X 10*3/uL (4.50-10.00)
[2021-10-20 15:55] LABS: ALT 13 U/L (8-44); AST 12 U/L (13-35); African American GFR (CKD) 74.5 (60.0-200.0); Blood Urea Nitrogen 13.9 mg/dL (9.0-27.0); Calcium 9.3 mg/dL (8.7-10.3); Carbon Dioxide 21.2 mmol/L (20.0-27.5); Chloride 109 mmol/L (96-109); Chol/HDL Ratio 3.25 Ratio; Glucose 81 mg/dL (70-110); LDL Cholesterol,Calculated 151.7 mg/dL (0.0-131.0); Non-African American GFR(CKD) 64.3 (60.0-200.0); Potassium 3.7 mmol/L (3.5-5.5); Sodium 143 mmol/L (135-145); VLDL Calculation 12.28 mg/dL (5.00-40.00)
== END | disposition home or self-care (01) ==
LOC: LABWHC1 07:51
PROVIDERS: ATTEND Nurse Practitioner Family
DX: E78.2 Mixed hyperlipidemia (principal); R53.83 Other fatigue; E55.9 Vitamin D deficiency, unspecified
CPT/HCPCS: 36415; 80048; 80061; 82306; 82607; 84443; 84450; 84460; 85027

== ENCOUNTER → 2022-04-07 | Outpatient (CLI) | payer OTHER ==
--- NOTE | 2022-04-07 16:54 | P.SLEEP ---
History of Present Illness DATE: 04/07/2022 CONSULTATION/NEW PATIENT EVALUATION HISTORY OF PRESENT ILLNESS/SLEEP-WAKE EVALUATION: 51year old lady had been ev aluated in the sleep center for insomnia and possible obstructive sleep apnea hypopnea syndrome. SLEEP SCHEDULE: Patient usually goes to bed around 911 PM his stay in bed until around 9 AM. She'll is staying the same room for all daytime activities and she also sleeps in the same room. FALLING ASLEEP: Patient has significant difficulties with the falling asleep, explaining that she cannot sleep for the whole night. Her room is quite noisy some, sometimes she is hearing some noise from outside. DURING SLEEP: Patient denied snoring. She explaining that she staying in bed for the whole night without sleep. Questionable positive history history of hypnogogical hallucinations. No history of sleep paralysis, or cataplexy. DURING THE DAY/WAKE STATE: In the morning patient wake up tired, has difficulties to pay attention. She does problems with memory, concentration, irritability, depression, anxiety, claustrophobia. [place] sleepiness scale is 2. Usually patient doesn't take any naps, she does not drink any caffeineted beverages. PAST MEDICAL HISTORY: Epilepsy, fibromyalgia, headaches, incontinence, patient was told about some changes on echocardiogram. PAST SURGICAL HISTORY: Bariatric surgery, cholecystectomy. MEDICATIONS: Levetiracetam 500 mg twice a day, hydrocodone acetaminophen, Seroquel 200 mg at bedtime, Cymbalta 30 mg once a day, cyclobenzaprine 10 mg at bedtime, topiramate 100 mg twice a day. SOCIAL HISTORY: Positive history of smoking about half pack a day on and off for 20 years, quit smoking, alcohol consumption none. FAMILY HISTORY: Unavailable, patient was adopted. REVIEW OF SYSTEMS: Difficulties to initiate sleep, possibly multiple awakenings from sleep. No fevers. No double vision. No recent chest pain. No shortness of breath. No abdominal pain. No bleeding episodes. No blood in urine. No seizure episodes. PHYSICAL EXAMINATION: GENERAL: A pleasant patient without any distress. VITAL SIGNS: BP 92/61, HR 74, RR 16, weight 194.4 pounds, height 5 foot 7-1/2 inches, body mass index 29.9. HEENT: PERRLA, EOMI. Evaluation of oropharynx showed tongue protrudes midline, low position of soft palate Mallampati 4. NECK: Supple. No JVD. Thyroid is not palpable. 13-3/4 inches in circumference. LUNGS: Clear to percussion and to auscultation. Good air exchange. No wheezing or rhonchi. HEART: S1, S2 regular. No murmurs, gallops or rubs. ABDOMEN: Soft and nontender. Bowel sounds are present. No organomegaly appreciated. EXTREMITIES: No clubbing or cyanosis. CREATIVE DIRECTOR: Awake, alert, and oriented x3. Cranial nerves 2 to 7 intact. There is no fa sciculation or atrophy noted. No focal deficits observed. ASSESSMENT: 1. Insomnia psychophysiological, differential diagnosis would include sleep state misperception. 2. Epilepsy. 3 extremely low position of soft palate. Possible obstructive sleep apnea hypopnea syndrome. 4. History of fibromyalgia. 5 and headaches. 6. Sinuses problems. 7. History of incontinence. 8. Abnormal echocardiogram according to patient. 9. History of mood disorder. 10. Status post bariatric surgery. 11. Status post cholecystectomy. PLAN: 1. Polysomnography for evaluation of patient's breathing during sleep and to check for possible sleep state misperception. 2. CPAP/BiPAP titration if sleep study confirms obstructive sleep apnea- hypopnea syndrome. 3. Preferable position during sleep on the side. 4. I discussed with patient psychological techniques for insomnia treatment including stimulus control, paradoxical intention, no watching clock. Patient should have more exposure to the light in the morning. To separate her bed from other part of her room. Earplugs. 5. Sleep hygiene with regular sleep time for at least 7.5-8 hours. 6. Watching weight. Thank you very much for referring this patient for consultation. Sincerely, Aron Morales MD, PhD, FAASM. Diplomat of [place] [employer], Sleep Medicine Board by [place] [employer] [place] [employer] [facility] [place] Past Medical History Past Medical History: Cancer, Hyperlipidemia, Osteoarthritis (OA), Pneumonia, Seizure Disorder Additional Past Medical History / Comment(s): low blood pressure, bradycardia, bronchitis,LAST SEIZURE WAS 12/01/21 . pt says she has a slow leaky valve . had cancer frozen off of cervical area years ago.MIGRAINE HEADACHES History of Any Multi-Drug Resistant Organisms: None Reported Past Surgical History: Bariatric Surgery, Cholecystectomy, Hernia Repair Additional Past Surgical History / Comment(s): gastric sleeve in 2014, panniculectomy Past Anesthesia/Blood Transfusion Reactions: No Reported Reaction Smoking Status: Never smoker - Past Family History Father Additional Family Medical History / Comment(s): pt adopted and she does not know any of his medical history. Mother Family Medical History: No Reported History Additional Family Medical History / Comment(s): pt adopted Sister(s) Additional Family Medical History / Comment(s): She has 3 sisters that she has never met. Son(s) Additional Family Medical History / Comment(s): Patient is a total of 7 children, 4 boys and 3 girls with no major medical problems. Medications and Allergies Home Medications Medication Instructions Recorded Confirmed Type Diclofenac Sodium Gel [Voltaren 2 gm TOPICAL QID #1 tube 03/10/16 12/01/21 Rx Gel] QUEtiapine [SEROquel] 200 mg PO HS 11/03/16 12/02/21 History FLUoxetine HCL [PROzac] 60 mg PO HS 06/17/21 12/02/21 History Pregabalin [Lyrica] 25 mg PO HS 06/17/21 12/02/21 History Topiramate [Topamax] 100 mg PO BID 06/17/21 12/02/21 History Allergies Allergy/AdvReac Type Severity Reaction Status Date / Time aspirin Allergy pt states Verified 12/02/21 10:41 she after taking bee venom protein (honey bee) Allergy Swelling Verified 12/02/21 10:41 sodium Allergy Anaphylaxis Verified 12/02/21 10:41 Sleep Note - Sleep Note Sleep Note: Temperature: Pulse Rate: Respiratory Rate: Blood Pressure: SpO2: Height: Weight: BMI: Neck Circumference:
== END ==
LOC: SLEEP 15:04
PROVIDERS: ATTEND Internal Medicine
DX: F51.04 Psychophysiologic insomnia (principal); G40.909 Epilepsy, unspecified, not intractable, without status epilepticus; J34.9 Unspecified disorder of nose and nasal sinuses; R94.31 Abnormal electrocardiogram [ECG] [EKG]; Z79.899 Other long term (current) drug therapy; Z98.84 Bariatric surgery status; Z90.49 Acquired absence of other specified parts of digestive tract; Z86.59 Personal history of other mental and behavioral disorders; Z87.39 Personal history of other diseases of the musculoskeletal system and connective tissue; Z87.898 Personal history of other specified conditions; Z88.6 Allergy status to analgesic agent; Z91.030 Bee allergy status; Z88.8 Allergy status to other drugs, medicaments and biological substances
CPT/HCPCS: 99211

== ENCOUNTER → 2022-08-05 | Outpatient (CLI) | payer OTHER ==
--- NOTE | 2022-08-05 14:05 | P.PN ---
Subjective DATE: 08/05/2022 FOLLOW UP VISIT. Patient returned to sleep center for follow-up visit to discuss results of sleep study and following plan. I discussed results of sleep study with patient in details. No significant respiratory abnormalities have been documented, normal oxygenation during the sleep. Total apnea hypopnea index is only 0.3 which is absolutely perfect. No periodic limb movements have been documented during the sleep study. Sleep efficiency was decreased to 58.9%. Sleep latency was prolonged to 121 minutes, which indicate insomnia or sleep delay syndrome. During second part of the night patient slept pretty well although no sleep REM was documented and extremely short delta sleep was documented. . [place] sleepiness scale is 2 today, which is normal. MEDICATIONS:1. Seroquel 2. Prozac 3. Lyrica 4. Topamax 5. Benadryl 6. Voltaren gel During physical exam: GENERAL: A pleasant patient without any distress. VITAL SIGNS: BP 122/81, HR 94, RR 16 , weight 194.0, temperature 96.9, oxygen saturation at room air 96% . HEENT: PERRLA, EOMI. NECK: Supple. No JVD. LUNGS: Clear to percussion and to auscultation. Good air exchange. No wheezing or rhonchi. HEART: S1, S2 regular. ABDOMEN: Soft and nontender. EXTREMITIES: No clubbing or cyanosis. FRAMING AND HANGING: Awake, alert, and oriented x3. No focal deficit. Impressions: 1. No significant respiratory abnormalities during sleep. Normal oxygenation during sleep. 2. No periodic limb movements have been documented.. 3. Long sleep latency which may indicate insomnia or sleep delay syndrome. 4. Changes of sleep architecture: BP secondary to first night adaptation responds and medications. Patient is on treatment with SSRIs. 5. Epilepsy. 6. History of Fibromyalgia. 7. History of migraine. Plan: 1. Psychological techniques for insomnia should include steam is control, paradoxical intention, worry time. 2. Sleep hygiene with regular time in bed for at least 8 hours. 3. Consider to use light machine in the morning after awakenings. 4. Precautions related to driving. No driving if feel any sleepiness. Patient is aware about civil and criminal liability for unsafe driving, promised to follow recommendations. 5. Follow up visit in 4-6 months or earlier if patient has any problems. Thank you very much for allowing me to participate in the management of your patient. Aron Stefadu, MD, PhD, FAASM. Diplomat of [place] [employer], Sleep Medicine Board by [place] [employer]
== END ==
LOC: SLEEP 13:04
PROVIDERS: ATTEND Internal Medicine
DX: G47.33 Obstructive sleep apnea (adult) (pediatric) (principal); Z87.39 Personal history of other diseases of the musculoskeletal system and connective tissue; G43.909 Migraine, unspecified, not intractable, without status migrainosus; G40.909 Epilepsy, unspecified, not intractable, without status epilepticus
CPT/HCPCS: 99212